=== PATIENT | male | born 1945 | race Caucasian/White ===

== ENCOUNTER 2017-05-21 09:58 | Emergency (ER) | payer OTHER, BC ==
[2017-05-21] MEDS ORDERED: FUROSEMIDE 40 MG/4 ML INJECTABLE VIAL ONE (10:13)
[2017-05-21 10:14] VITALS: BMI 32.1
[2017-05-21] MEDS ORDERED: FUROSEMIDE 40 MG/4 ML INJECTABLE VIAL IVPUSH ONE (10:20)
[2017-05-21 10:23] LABS: MCH 26.9 pg (25.7-33.7); MCHC 31.5 g/dl (32.0-35.9); MEAN CELL VOLUME 85.2 fl (80-96); MEAN PLT VOLUME 8.3 fl (7.5-11.1); PLATELET COUNT 275 K/MM3 (134-434); RDW 15.6 % (11.9-15.9); WHITE BLOOD COUNT 19.5 K/mm3 (4.0-10.0)
[2017-05-21] MEDS ORDERED: ATORVASTATIN CA 80 MG TABLET (FP) ONE (10:26)
[2017-05-21] MEDS ORDERED: HEPARIN NA (PORCINE) 5,000 UNITS/ML 1ML VIAL SQ ONE (10:27)
[2017-05-21] MEDS ORDERED: ATORVASTATIN CA 80 MG TABLET (FP) PO ONE (10:27)
[2017-05-21] MEDS ORDERED: TICAGRELOR 90 MG TABLET PO ONE (10:29)
[2017-05-21] MEDS ORDERED: HEPARIN NA (PORCINE) 5,000 UNITS/ML 1ML VIAL ONE (10:31)
--- NOTE | 2017-05-21 10:36 | PDOC ---
History of Present Illness - History of Present Illness Initial Comments: 05/21/17 10:37 Patient is a 72 year old male with significant medical hx of DM, COPD, HTN, HLD and asbestosis who is presenting to the ED via EMS with twelve hours of worsening shortness of breath and left shoulder pain. The patient underwent quadruple bypass surgery three weeks ago at [facility]. Since his surgery hes had some dyspnea and was found to have a pleural effusion which was reportedly treated at [place]. The patient complains of his dyspnea worsening since 11PM last night, stating that hes had significantly increased labored breathing that began at rest while watching television and worsens with exertion. The patient also complains of constant, non-radiating, left shoulder pain. Patient was given 324 mg of aspirin and one sublingual NTG at approximately 9:45 AM by EMS that reportedly did not relieve his symptoms. Denies abdominal pain, nausea, vomiting, diarrhea, fever, or chills. PCP/Band Director: Kaleb Martines MD Security Orderly: Kisha Cain MD <Sachi Sim - Last Filed: 05/21/17 10:46> <Katarina Damon - Last Filed: 05/21/17 11:00> - General Chief Complaint: Shortness of Breath Stated Complaint: SOB Time Seen by Provider: 05/21/17 10:10 Past History <Sachi Sim - Last Filed: 05/21/17 10:46> - Past Medical History Asthma: Yes Diabetes: Yes HTN: Yes - Surgical History Cardiac Surgery: Yes (quadruple bypass 04/2017) - Psycho/Social/Smoking Cessation Hx Anxiety: No Suicidal Ideation: No Smoking History: Former smoker Have you smoked in the past 12 months: No If you are a former smoker, when did you quit?: 2011 Information on smoking cessation initiated: No Hx Alcohol Use: No Drug/Substance Use Hx: No Substance Use Type: None Hx Substance Use Treatment: No <Katarina Damon - Last Filed: 05/21/17 11:00> - Past Medical History Allergies/Adverse Reactions: Allergies Allergy/AdvReac Type Severity Reaction Status Date / Time No Known Allergies Allergy Verified 05/21/17 10:14 Home Medications: Ambulatory Orders Tiotropium [place] [Spiriva] 1 inh PO DAILY 09/12/16 Aspirin [ASA -] 81 mg PO DAILY tab.chew 09/15/16 Ranitidine [Zantac -] 150 mg PO BID tablet 09/15/16 Metformin HCl [Metformin HCl ER] 1,000 mg PO BID 05/21/17 Torsemide 20 mg PO BID 05/21/17 Review of Systems - Review of Systems Comments:: 05/21/17 10:38 CONSTITUTIONAL: No fever, no chills, no fatigue EYES: No visual changes ENT: No ear pain, no sore throat CARDIOVASCULAR: No chest pain, no palpitations RESPIRATORY: SOB. No cough GI: No abdominal pain, no nausea, no vomiting, no constipation, no diarrhea GENITOURINARY: No dysuria, no frequency, no hematuria MUSKULOSKELETAL: Left shoulder pain. No backpain, no joint pain, no myalgias SKIN: No rash NEURO: Headache <Sachi Sim - Last Filed: 05/21/17 10:46> *Physical Exam - Vital Signs Last Vital Signs Temp Pulse Resp BP Pulse Ox 98.5 F 100 H 32 H 110/65 99 05/21/17 09:58 05/21/17 10:15 05/21/17 10:15 05/21/17 10:15 05/21/17 10:15 - Physical Exam Comments: 05/21/17 10:46 CONSTITUTIONAL: Well-appearing; well-nourished; moderate distress HEAD: Normocephalic; atraumatic EYES: PERRL; EOM intact ENMT: External appears normal; normal oropharynx NECK: Supple; non-tender; no cervical lymphadenopathy CARD: Normal S1, S2; no murmurs, rubs, or gallops RESP: Tachypneic at 35 with labored breathing. Respiratory distress. Crackles throughout. ABD: Soft, non-distended; non-tender; no palpable organomegaly, no palpable hernias EXT: Normal ROM in all four extremities; non-tender to palpation; distal pulses intact SKIN: Warm, dry, no rash NEURO: No focal neurological deficiencies. <Sachi Sim - Last Filed: 05/21/17 10:46> - Vital Signs Last Vital Signs Temp Pulse Resp BP Pulse Ox 98.5 F 100 H 32 H 110/65 99 05/21/17 09:58 05/21/17 10:15 05/21/17 10:15 05/21/17 10:15 05/21/17 10:15 <Katarina Damon - Last Filed: 05/21/17 11:00> Heart Score/ECG Review #1 05/21/17 10:39 Poor data quality, interpretation may be adversely affected Suspect arm lead reversal, interpretation assumes no reversal Sinus tachycardia at 104 bpm Right bundle branch block ST elevation, consider inferior injury or acute infarct ACUTE GA / STEMI Abnormal ECG <ChiquisSachi - Last Filed: 05/21/17 10:46> ED Treatment Course - LABORATORY CBC & Chemistry Diagram: 05/21/17 10:19 05/21/17 10:19 - ADDITIONAL ORDERS Additional order review: 05/21/17 10:19 RBC 4.83 MCV 85.2 MCHC 31.5 L RDW 15.6 MPV 8.3 Neutrophils % Y Lymphocytes % Y - Medications Given in the ED: ED Medications Discontinued Medications Generic Name Dose Route Start Last Admin Trade Name Freq PRN Reason Stop Dose Admin Atorvastatin Calcium 80 mg 05/21/17 10:27 05/21/17 10:29 Lipitor - PO 05/21/17 10:28 80 mg ONCE ONE Administration Furosemide 40 mg 05/21/17 10:20 05/21/17 10:15 Lasix Injection - IVPUSH 05/21/17 10:21 40 mg ONCE ONE Administration Heparin Sodium (Porcine) 5,000 unit 05/21/17 10:27 05/21/17 10:33 Heparin - SQ 05/21/17 10:28 5,000 unit ONCE ONE Administration <ChiquisSachi - Last Filed: 05/21/17 10:46> - LABORATORY CBC & Chemistry Diagram: 05/21/17 10:19 05/21/17 10:19 - ADDITIONAL ORDERS Additional order review: 05/21/17 10:19 RBC 4.83 MCV 85.2 MCHC 31.5 L RDW 15.6 MPV 8.3 Neutrophils % Y Lymphocytes % Y - RADIOLOGY Radiology Studies Ordered: Category Date Time Status CHEST X-RAY PORTABLE* [RAD] Stat Radiology 05/21/17 10:11 Ordered - Medications Given in the ED: ED Medications Discontinued Medications Generic Name Dose Route Start Last Admin Trade Name Freq PRN Reason Stop Dose Admin Atorvastatin Calcium 80 mg 05/21/17 10:27 05/21/17 10:29 Lipitor - PO 05/21/17 10:28 80 mg ONCE ONE Administration Furosemide 40 mg 05/21/17 10:20 05/21/17 10:15 Lasix Injection - IVPUSH 05/21/17 10:21 40 mg ONCE ONE Administration Heparin Sodium (Porcine) 5,000 unit 05/21/17 10:27 05/21/17 10:33 Heparin - SQ 05/21/17 10:28 5,000 unit ONCE ONE Administration <Katarina Damon - Last Filed: 05/21/17 11:00> Medical Decision Making - Critical Care Time Total Critical Care Time (minutes): 60 Critical Care Statement: The care of this patient involved high complexity decision making to prevent further life threatening deterioration of the patient 's condition and/or to evalute & treat vital organ system(s) failure or risk of failure. - Medical Decision Making 05/21/17 10:54 Pt presented to ED with sob, RR 34, crackles throughout lungs lefts shoulder pain , pt is diabectic, and has h/o asbestosis, recent cardiac cabg x4 april 26 , pt c/o sob strarting 11pm getting worse, pt received as and ntg by ems no relief, pt given lasix 40mg ivp in ed with 180mg of brinta, lipitor 80mg, heparin bolus after discussion with instrumentation and controls designer, Unclear if this is ACS or CHF , ekg not dramtically changed from previous ekg but pt has elevation in II,III, AVF, decision made to transfer to [place], pt acepted by Dr Toth, report given to preschool head teacher, ekg sent to him, he requested heparin drip, pt with stable vitals at time of this note, xray shows chf. <Katarina Damon - Last Filed: 05/21/17 11:00> *DC/Admit/Observation/Transfer - Attestations Scribe Attestion: 05/21/17 10:40 Documentation prepared by Sachi Sim, acting as anesthesiology medical doctor for Katarina Damon MD. <Sachi Sim - Last Filed: 05/21/17 10:46> - Transfer to Acute Care Facility Receiving Facility: [facility]) Accepting Physician:: Dr Toth Transfer comment: 05/21/17 10:59 - Attestations Physician Attestion: 05/21/17 10:59 <Katarina Damon - Last Filed: 05/21/17 11:00> Diagnosis at time of Disposition: CHF (congestive heart failure), Chest pain - Discharge Dispostion Disposition: TRANSFER ACUTE CARE/OTHER HOSP Condition at time of disposition: Fair - Referrals Referrals: Kaleb Martines MD [Primary Care Provider] -
[2017-05-21 10:40] LABS: INR 1.2 (0.82-1.09); PROTHROMBIN TIME (PATIENT) 13.2 SEC (9.98-11.88)
[2017-05-21 10:48] LABS: ALBUMIN 3.7 g/dl (3.4-5.0); ANION GAP 9 (8-16); BILIRUBIN,TOTAL 0.5 mg/dL (0.2-1.0); CALCIUM 9.4 mg/dL (8.5-10.1); CO2 28 mmol/L (21-32); CREATININE 1.3 mg/dL (0.7-1.3); GLUCOSE,RANDOM 155 mg/dL (74-106); SGOT/AST 17 U/L (15-37); SGPT/ALT 21 U/L (12-78)
[2017-05-21 10:50] LABS: ALK PHOS 139 U/L (45-117); TROPONIN I < 0.02 ng/ml (0.00-0.05)
[2017-05-21] MEDS ORDERED: HEPARIN INFUSION - 500 ML IVPB ONE (10:51)
[2017-05-21] MEDS ORDERED: HEPARIN - 25,000 UNIT in SODIUM CHLORIDE 495 ML IV SCH (11:00)
[2017-05-21] MEDS ORDERED: HEPARIN NA (PORCINE) 5,000 UNITS/ML 1ML VIAL IVPUSH PRN ×2 (11:00)
[2017-05-21 11:07] VITALS: BP 112/68
[2017-05-21 11:11] VITALS: PULSE 98; TEMP 98.8
--- NOTE | 2017-05-21 11:18 | PDOC ---
*Physical Exam - Vital Signs Last Vital Signs Temp Pulse Resp BP Pulse Ox 98.8 F 98 H 32 H 112/68 99 05/21/17 11:08 05/21/17 11:08 05/21/17 11:08 05/21/17 11:08 05/21/17 10:37 ED Treatment Course - LABORATORY CBC & Chemistry Diagram: 05/21/17 10:19 05/21/17 10:19 - ADDITIONAL ORDERS Additional order review: Laboratory Results 05/21/17 05/21/17 05/21/17 10:19 10:19 10:19 INR 1.20 H Sodium 134 L Potassium 5.1 Chloride 97 L Carbon Dioxide 28 Anion Gap 9 BUN 21 H Creatinine 1.3 Creat Clearance w eGFR 54.42 Random Glucose 155 H Calcium 9.4 Total Bilirubin 0.5 AST 17 ALT 21 Alkaline Phosphatase 139 H Creatine Kinase 73 Troponin I < 0.02 B-Natriuretic Peptide 1278.85 H Total Protein 8.0 Albumin 3.7 05/21/17 10:19 RBC 4.83 MCV 85.2 MCHC 31.5 L RDW 15.6 MPV 8.3 Neutrophils % Y Lymphocytes % Y - RADIOLOGY Radiology Studies Ordered: Category Date Time Status CHEST X-RAY PORTABLE* [RAD] Stat Radiology 05/21/17 10:11 Taken - Medications Given in the ED: ED Medications Discontinued Medications Generic Name Dose Route Start Last Admin Trade Name Freq PRN Reason Stop Dose Admin Atorvastatin Calcium 80 mg 05/21/17 10:27 05/21/17 10:29 Lipitor - PO 05/21/17 10:28 80 mg ONCE ONE Administration Furosemide 40 mg 05/21/17 10:20 05/21/17 10:15 Lasix Injection - IVPUSH 05/21/17 10:21 40 mg ONCE ONE Administration Heparin Sodium (Porcine) 5,000 unit 05/21/17 10:27 05/21/17 10:33 Heparin - SQ 05/21/17 10:28 5,000 unit ONCE ONE Administration Medical Decision Making - Medical Decision Making 05/21/17 11:17 I, Dr. Katarina Damon, attest that the scribes documentation that appears above has been prepared under my direction and personally reviewed by me. I confirmed that the note above accurately reflects all work, treatment, procedures, and medical decision-making performed by me. *DC/Admit/Observation/Transfer Diagnosis at time of Disposition: CHF (congestive heart failure), Chest pain - Discharge Dispostion Disposition: TRANSFER ACUTE CARE/OTHER HOSP Condition at time of disposition: Fair - Referrals Referrals: Kaleb Martines MD [Primary Care Provider] - - Patient Instructions - Post Discharge Activity
--- NOTE | 2017-05-21 11:25 | PDOC ---
*Physical Exam - Vital Signs Last Vital Signs Temp Pulse Resp BP Pulse Ox 98.8 F 98 H 32 H 112/68 99 05/21/17 11:08 05/21/17 11:08 05/21/17 11:08 05/21/17 11:08 05/21/17 10:37 ED Treatment Course - LABORATORY CBC & Chemistry Diagram: 05/21/17 10:19 05/21/17 10:19 - ADDITIONAL ORDERS Additional order review: Laboratory Results 05/21/17 05/21/17 05/21/17 10:19 10:19 10:19 INR 1.20 H Sodium 134 L Potassium 5.1 Chloride 97 L Carbon Dioxide 28 Anion Gap 9 BUN 21 H Creatinine 1.3 Creat Clearance w eGFR 54.42 Random Glucose 155 H Calcium 9.4 Total Bilirubin 0.5 AST 17 ALT 21 Alkaline Phosphatase 139 H Creatine Kinase 73 Troponin I < 0.02 B-Natriuretic Peptide 1278.85 H Total Protein 8.0 Albumin 3.7 05/21/17 10:19 RBC 4.83 MCV 85.2 MCHC 31.5 L RDW 15.6 MPV 8.3 Neutrophils % Y Lymphocytes % Y - RADIOLOGY Radiology Studies Ordered: Category Date Time Status CHEST X-RAY PORTABLE* [RAD] Stat Radiology 05/21/17 10:11 Completed - Medications Given in the ED: ED Medications Discontinued Medications Generic Name Dose Route Start Last Admin Trade Name Freq PRN Reason Stop Dose Admin Atorvastatin Calcium 80 mg 05/21/17 10:27 05/21/17 10:29 Lipitor - PO 05/21/17 10:28 80 mg ONCE ONE Administration Furosemide 40 mg 05/21/17 10:20 05/21/17 10:15 Lasix Injection - IVPUSH 05/21/17 10:21 40 mg ONCE ONE Administration Heparin Sodium (Porcine) 5,000 unit 05/21/17 10:27 05/21/17 10:33 Heparin - SQ 05/21/17 10:28 5,000 unit ONCE ONE Administration *DC/Admit/Observation/Transfer Diagnosis at time of Disposition: CHF (congestive heart failure), Chest pain - Discharge Dispostion Disposition: TRANSFER ACUTE CARE/OTHER HOSP Condition at time of disposition: Fair - Referrals Referrals: Kaleb Martines MD [Primary Care Provider] - - Patient Instructions - Post Discharge Activity - Transfer to Acute Care Facility Transfer comment: 05/21/17 11:24 I certify that I have discussed with the patient and/or his personnel representative the following risks and benefits of the proposed transfer. Risks include worsening of patients condition during transport,auto accident, or permanent disability. Benefits include receiving specialized care not available at this facility. I certify that, based on the information available at this time, the medical benefits reasonably expected from the provision of appropriate medical treatment at the receiving facility outweigh the increased risk to the patient and in the case of a woman in labor, to the woman or unborn child from being transferred. I believe the patient/relative/guardian understands what I have explained and answered.
[2017-05-21 11:53] LABS: PLATELET ESTIMATE ADEQUATE (NORMAL)
--- NOTE | 2017-05-21 12:23 | PDOC ---
*Physical Exam - Vital Signs Last Vital Signs Temp Pulse Resp BP Pulse Ox 98.8 F 98 H 32 H 112/68 99 05/21/17 11:08 05/21/17 11:08 05/21/17 11:08 05/21/17 11:08 05/21/17 10:37 ED Treatment Course - LABORATORY CBC & Chemistry Diagram: 05/21/17 10:19 05/21/17 10:19 - ADDITIONAL ORDERS Additional order review: Laboratory Results 05/21/17 05/21/17 05/21/17 10:19 10:19 10:19 INR 1.20 H Sodium 134 L Potassium 5.1 Chloride 97 L Carbon Dioxide 28 Anion Gap 9 BUN 21 H Creatinine 1.3 Creat Clearance w eGFR 54.42 Random Glucose 155 H Calcium 9.4 Total Bilirubin 0.5 AST 17 ALT 21 Alkaline Phosphatase 139 H Creatine Kinase 73 Troponin I < 0.02 B-Natriuretic Peptide 1278.85 H Total Protein 8.0 Albumin 3.7 05/21/17 10:19 RBC 4.83 MCV 85.2 MCHC 31.5 L RDW 15.6 MPV 8.3 Neutrophils % 83.0 H Lymphocytes % 3.0 L Monocytes % 6.0 Eosinophils % 0.0 Basophils % 0.0 - RADIOLOGY Radiology Studies Ordered: Category Date Time Status CHEST X-RAY PORTABLE* [RAD] Stat Radiology 05/21/17 10:11 Completed - Medications Given in the ED: ED Medications Discontinued Medications Generic Name Dose Route Start Last Admin Trade Name Freq PRN Reason Stop Dose Admin Atorvastatin Calcium 80 mg 05/21/17 10:27 05/21/17 10:29 Lipitor - PO 05/21/17 10:28 80 mg ONCE ONE Administration Furosemide 40 mg 05/21/17 10:20 05/21/17 10:15 Lasix Injection - IVPUSH 05/21/17 10:21 40 mg ONCE ONE Administration Heparin Sodium (Porcine) 5,000 unit 05/21/17 10:27 05/21/17 10:33 Heparin - SQ 05/21/17 10:28 5,000 unit ONCE ONE Administration Heparin Sodium (Porcine) 25, 500 mls @ 20 mls/hr 05/21/17 11:00 05/21/17 11:06 000 unit/ Sodium Chloride IV 20 mls/hr TITR PIERRE Administration Protocol 1,000 UNIT/HR Ticagrelor 180 mg 05/22/17 10:00 05/21/17 10:30 Brilinta - PO 180 mg DAILY PIERRE Administration Medical Decision Making - Medical Decision Making 05/21/17 12:22 Case discussed with Fellow at [place] Dr. Taz Gómez. *DC/Admit/Observation/Transfer Diagnosis at time of Disposition: CHF (congestive heart failure), Chest pain - Discharge Dispostion Disposition: TRANSFER ACUTE CARE/OTHER HOSP Condition at time of disposition: Fair - Referrals Referrals: Kaleb Martines MD [Primary Care Provider] - - Patient Instructions - Post Discharge Activity
[2017-05-22] MEDS ORDERED: TICAGRELOR 90 MG TABLET PO SCH (10:00)
--- NOTE | 2017-05-23 13:53 | EKG ---
Test Reason : Blood Pressure : / mmHG Vent. Rate : 099 BPM Atrial Rate : 099 BPM P-R Int : 182 ms QRS Dur : 128 ms QT Int : 378 ms P-R-T Axes : 093 107 076 degrees QTc Int : 485 ms NORMAL SINUS RHYTHM RIGHT BUNDLE BRANCH BLOCK NONSPECIFIC ST AND T WAVE ABNORMALITY ABNORMAL ECG NO PREVIOUS ECGS AVAILABLE Confirmed by ZACK HANKS MD ([id number]) on 05/23/2017 1:53:05 PM Referred By: Confirmed By:ZACK HANKS MD
== END 2017-05-21 11:15 | disposition short-term general hospital (02) ==
LOC: JER 09:58
PROC: 3E033GC Introduction of Other Therapeutic Substance into Peripheral Vein, Percutaneous Approach (ICD-10-PCS; principal; 2017-05-21)
PROC: 3E033GC Introduction of Other Therapeutic Substance into Peripheral Vein, Percutaneous Approach (ICD-10-PCS; 2017-05-21)
PROC: 3E013GC Introduction of Other Therapeutic Substance into Subcutaneous Tissue, Percutaneous Approach (ICD-10-PCS; 2017-05-21)
DX: I50.9 Heart failure, unspecified (principal); R07.89 Other chest pain; I25.10 Atherosclerotic heart disease of native coronary artery without angina pectoris; I10 Essential (primary) hypertension; Z95.1 Presence of aortocoronary bypass graft; E11.9 Type 2 diabetes mellitus without complications; Z79.84 Long term (current) use of oral hypoglycemic drugs
CPT/HCPCS: 36415; 71010-TC; 80053; 82550; 83880; 84484; 85025; 85610; 93005; 93010; 96365; 96372; 96375; 99285-25; J1644